=== PATIENT | male | born 1985 | race Caucasian/White ===

== ENCOUNTER 2018-11-06 23:05 | Emergency (ER) | payer SELFPAY ==
[2018-11-07] MEDS ORDERED: PERTUSS(ACELL),DIPH,TET VAC/PF 0.5 ML VIAL IM ONE (01:00)
[2018-11-07] MEDS ORDERED: CEPHALEXIN MONOHYDRATE 500 MG CAPSULE PO ONE (01:00)
[2018-11-07] MEDS ORDERED: BACITRACIN 0.9 GM PACKET OINTMENT TP ONE (01:00)
[2018-11-07] MEDS ORDERED: LIDOCAINE 1%/EPI 1:100,000 30 ML VIAL INJ ONE (01:00)
[2018-11-07 03:01] VITALS: BP 122/77
== END 2018-11-07 04:00 | disposition home or self-care (01) ==
LOC: EMS 23:06
DX: S81.012A Laceration without foreign body, left knee, initial encounter (principal); F17.210 Nicotine dependence, cigarettes, uncomplicated; W45.8XXA Other foreign body or object entering through skin, initial encounter; Y93.89 Activity, other specified; Y92.89 Other specified places as the place of occurrence of the external cause; Y99.8 Other external cause status
CPT/HCPCS: 12002; 73562; 90471; 90715; 99283; 99406; J3490

== ENCOUNTER 2020-06-30 21:27 | Emergency (ER) | payer MEDICAID ==
[~2020-06-30] VITALS: Ht 170.2 cm; Wt 86.0 kg
[2020-07-01] MEDS ORDERED: ACETAMINOPHEN 500 MG TABLET PO ONE (00:15)
[2020-07-01 01:33] VITALS: BP 136/86
== END 2020-07-01 02:30 | disposition home or self-care (01) ==
LOC: EMS 21:27
DX: S40.012A Contusion of left shoulder, initial encounter (principal); S50.12XA Contusion of left forearm, initial encounter; S80.212A Abrasion, left knee, initial encounter; S09.90XA Unspecified injury of head, initial encounter; F17.210 Nicotine dependence, cigarettes, uncomplicated; Y04.0XXA Assault by unarmed brawl or fight, initial encounter; Y93.89 Activity, other specified; Y92.89 Other specified places as the place of occurrence of the external cause; Y99.8 Other external cause status
CPT/HCPCS: 70450; 70486; 72125; 99285